=== PATIENT | female | born 1980 | race Caucasian/White ===

== ENCOUNTER 2016-10-13 14:17 | Emergency (ER) | payer OTHER ==
--- NOTE | 2016-10-13 15:17 | ERNOTE ---
[facility] Date of Service: 10/13/16 Presenting Symptoms: other - sore throat, chills and ear fullness Time Seen by Provider: 10/13/16 14:44 Source: patient Exam Limitations: no limitations - Immun/Allergies/Home Medications Immunizations: IMMUNIZATION HX Immunizations Up to Date Yes History of Influenza Vaccine No Hx Pneumococcal Vaccination No Allergies/Adverse Reactions: Allergies Allergy/AdvReac Type Severity Reaction Status Date / Time meperidine HCl [From Demerol] Allergy Severe Anaphylaxis Verified 10/13/16 14:27 NSAIDS (Non-Steroidal AdvReac Mild Nausea Verified 10/13/16 14:27 Anti-Inflamma Home Medications: HOME MEDICATIONS Albuterol Sulfate [Proair Hfa] 17 gm IH Q4H PRN 11/26/12 [Last Taken 03/13/16 08 :00] Tiotropium [place] [Spiriva] 18 mcg IH DAILY 11/26/12 [Last Taken Unknown] Benzonatate [Tessalon Perle] 100 mg PO HS #7 capsule 10/13/16 [Last Taken Unknown] - Pain Score Pain Score #1 Pain Score: 6 - History of Present Illness Narrative: Patient is a 36 year old female who presents to the ED with complaints of sore throat and chills since Friday evening and ear fullness since last night. States right ear feels full and left ear "pops constantly". Also complains of clear nasal drainage and clear to occasional yellow sputum. Denies fever, NVD, abdominal pain. No change in appetite Date (Duration): 10/11/16 Severity: Present: mild ENT Location: Present: ear (R), ear (L), throat Prearrival Treatment: Present: no prearrival treatment Modifying Factors - Improves: Reports: nothing Modifying Factors - Worsens: Reports: nothing Associated Symptoms - ENT: Reports: sore throat. Denies: fever, malaise, poor fluid intake, poor solid intake, cough, voice change, drooling, nasal congestion /drainage, facial pain/swelling, tooth pain, jaw swelling, change in hearing, ear drainage, headache, foreign body Review of Systems - Review of Systems Constitutional: Absent: recent illness, fever, chills, diaphoresis, weakness, fatigue, malaise, weight loss EYE: Absent: eye pain, eye discharge, blurred vision, double vision ENT: Present: ear pain - opal ear pain, sore throat. Absent: ear discharge, pulling on ears, nose pain, nose congestion, nasal drainage Respiratory: Present: no symptoms reported. Absent: shortness of breath, cough , orthopnea, wheezing, stridor Cardiology: Present: no symptoms reported. Absent: chest pain, palpitations, syncope, edema, claudication Gastrointestinal/Abdominal: Present: no symptoms reported. Absent: nausea, vomiting, diarrhea Genitourinary: Present: no symptoms reported Musculoskeletal: Present: no symptoms reported. Absent: back pain, muscle pain , muscle stiffness, neck pain, joint pain Skin: Present: no symptoms reported. Absent: rash, dryness Neurological: Present: no symptoms reported Endocrine: Present: no symptoms reported Hematologic/Lymphatic: Present: no symptoms reported Psych: Present: no symptoms reported - Patient's Past Medical History Patient History - Medical: Anemia, Depression, GERD, Kidney stone, Migraines, Osteoarthritis, Seizures, Other Patient History - Cardiac/Respiratory: COPD Patient History - Cancer: Cervical Patient History - Surgical Procedures: Appendectomy, EGD, Ear Tubes, Hysterectomy, Tubal Ligation, Other Patient History - Other: None LMP (females 10-50): other - Family History Father Family History - Medical: , No pertinent hx Family History - Cardiac/Respiratory: Hypertension Mother Family History - Medical: No pertinent hx Family History - Cardiac/Respiratory: Hypertension, Other Paternal Uncle Family History - Medical: No pertinent hx Family History - Cardiac/Respiratory: No pertinent hx - Social History Living Situations: home Abuse History: No History of abuse Psych History: No pertinent hx Smoking Status: Current every day smoker Alcohol Use: rarely Drug Use: none - Immunizations Immunizations Up to Date: Yes Hx Pneumococcal Vaccination: No History of Influenza Vaccine: No Physical Exam - Physical Exam General Appearance: Present: wd/wn, alert, no apparent distress Head Exam: Present: normal inspection, no evidence of injury Eye Exam: Normal inspection: bilateral, PERRL: bilateral, EOMI: bilateral Ears, Nose, Throat: Present: normal ENT inspection, normal pharynx. Absent: hearing decreased, pharyngeal erythema, pharyngeal swelling, tonsillar exudate, tonsillar swelling, dry mucous membranes Neck: Present: normal inspection, nontender, supple, full range of motion. Absent: lymphadenopathy (R), lymphadenopathy (L) Respiratory: Present: no respiratory distress, normal breath sounds, no accessory muscle use, chest nontender, lungs clear. Absent: chest tenderness, respiratory distress, stridor, wheezing Cardiovascular/Chest: Present: regular rate, rhythm, no murmur, normal peripheral pulses Peripheral Pulses: N=norm/S=strong/W=weak/B=bound/A=absent: Radial (R): Normal, Radial (L): Normal Gastrointestinal/Abdominal: Present: normal bowel sounds, nontender, nondistended, soft, no organomegaly Rectal Exam: Present: deferred Back Exam: Present: normal inspection, normal range of motion, no CVA tenderness , no vertebral tenderness Extremity Exam: Present: normal inspection, non-tender, normal range of motion, no edema Neurological Exam: Present: alert, oriented, normal mood/affect, no motor/ sensory deficits Skin Exam: Present: normal color, warm/dry Lymphatic Exam: Present: no adenopathy ED Progress - Results and Orders Patient's Lab Results:: I have reviewed the patient's lab results. - Vital Signs Patient's Vital Signs:: I have reviewed the patient's vital signs. Vital Signs: Vital Signs 10/13/16 10/13/16 14:23 14:36 Temperature 36.9 C 37 C Pulse Rate 83 85 Respiratory 16 Rate Blood Pressure 114/63 112/66 O2 Sat by Pulse 98 98 Oximetry - Progress/Reassessment Chief Complaint: Sore Throat Progress:: Unchanged Departure Clinical Impression: Sore throat (viral), Upper respiratory infection with cough and congestion - Departure Disposition: Home self-care Condition: Good Instructions: Upper Respiratory Infection, Adult, [id number], Form - Excuse from Work, School, or Physical Activity, Pharyngitis, [id number] Additional Instructions: Push fluids, especially water and Gatorade. Sucrets/[place]mar for sore throat and cough. Warm salt water gargles can be used for sore throat and honey mixed in warm tea can help with sore throat and cough. Return if symptoms worsen, shortness of breath or chest pain occur Referrals: Flor Ridley FNP [Primary Care Provider] - Prescriptions: Benzonatate [Tessalon Perle] 100 mg PO HS #7 capsule
[2016-10-13 15:29] VITALS: BP 121/72
== END 2016-10-13 15:18 | disposition home or self-care (01) ==
LOC: ER 14:17
DX: J02.8 Acute pharyngitis due to other specified organisms (principal); Z72.0 Tobacco use; J06.9 Acute upper respiratory infection, unspecified